=== PATIENT | female | born 1955 | race Caucasian/White ===

== ENCOUNTER 2022-04-09 09:06 | Observation (INO) | payer MEDICARE, SELFPAY ==
--- NOTE | 2022-04-02 17:03 | US_ITS ---
STUDY: ULTRASOUND OF THE FEMALE PELVIS - COMPLETE REASON FOR EXAM: Female, 67 years old. Pelvic pain LMP: Unknown. TECHNIQUE: Transvaginal TECHNICAL QUALITY: Adequate. COMPARISON: None. FINDINGS: The uterus is retroflexed and is in a midline position. The uterus measures 7.6 x 5 x 3.1 cm. Normal uterine cervix. The endometrium measures 2.2 mm in thickness, and is fluid distended. Small echogenic shadows are seen within the endometrial cavity could represent small polyps. There is no demonstrated myometrial mass. I.U.D. - The patient does not have an I.U.D. The right ovary is visualized. The right ovary measures 2.6 x 2 x 1.5 cm. There is no right ovarian cyst or ovarian mass. There is no visualized right adnexal mass or complex lesion. There is normal arterial and normal venous vascularity. The left ovary is visualized. The left ovary measures 2.5 x 1.5 x 1.1 cm. There is no left ovarian cyst or ovarian mass. There is no visualized left adnexal mass or complex lesion. There is normal arterial and normal venous vascularity. There is no fluid in the cul-de-sac. US/Transvaginal Non- IMPRESSION: 1. Nonspecific mild fluid within the endometrial cavity with small echogenic structures within it could represent polyps. 2. Retroflexed uterus. Electronically Signed: Luis Enrique Hermosillo MD at 8:45 EDT ,
--- NOTE | 2022-04-06 10:18 | EKG12_ITS ---
Test Reason : PRE-OP Blood Pressure : / mmHG Vent. Rate : 072 BPM Atrial Rate : 072 BPM P-R Int : 152 ms QRS Dur : 088 ms QT Int : 364 ms P-R-T Axes : 010 -06 011 degrees QTc Int : 398 ms Normal sinus rhythm Normal ECG Confirmed by ABRAHAM SMITH, MATTEO ([id number]), video editor RADHA DURAND ([id number]) on 04/07/2022 10:05:18 AM Referred By: Anisha Hall Confirmed By:MATTEO ROSARIO MD
[2022-04-06 11:40] LABS: Hematocrit 42.3 % (37-47); Hemoglobin 14.1 g/dL (12.0-15.0); Mean Corp Hgb Conc 33.3 g/dL (32-36); Mean Corpuscular Hgb 29.9 pg (27.0-32.0); Mean Corpuscular Volume 89.6 fL (81-99); Mean Platelet Vol. 9.8 fl (6.2-12.0); Platelet Count 261 K/mm3 (150-450); RBC Distribution Width CV 12.7 % (11.6-14.6); RBC Distribution Width SD 41.6 fl (35.1-43.9); Red Blood Count 4.72 M/mm3 (4.2-5.4); White Blood Count 7.6 K/mm3 (4.4-11.0)
--- NOTE | 2022-04-08 16:42 | PCM.HP.BLA ---
History and Physical Date of Admission: 04/08/22 MR#: [id number] Acct: [id number] Name:RADHAMES MG Rep #: [id number] : 1955 ? ? Provider: Dr. Anisha Hall, DO Age/Sex:? 67/F ? ? Location: [facility] [place] Status: Signed Intake Vital Signs ? 03/25/2214:35 Height 5 ft 7 in Weight: 175 lb BMI 27.3 BP 158/90 H Intake Visit Reasons:?Karolina payne TVH possible cysto It Disaster Recovery Manager Required: No Is patient in pain?: No Allergies No Known Allergies Allergy (Verified 03/05/22 10:04) Medications ascorbic acid (vitamin C) [Vitamin C] 500 mg PO DAILY 03/05/22 [History Confirmed 03/25/22] biotin 1 mg PO DAILY 03/05/22 [History Confirmed 03/25/22] krnlixi-cyfufraci-atdx 1 tab PO DAILY 03/05/22 [History Confirmed 03/25/22] cholecalciferol (vitamin D3) [Vitamin D3] 150 mcg PO BID 03/05/22 [History Confirmed 03/25/22] fiber 1 tab PO DAILY 03/05/22 [History Confirmed 03/25/22] flaxseed oil 1,000 mg PO DAILY 03/05/22 [History Confirmed 03/25/22] folic acid 0.8 mg PO DAILY 03/05/22 [History Confirmed 03/25/22] xkcxtusu-xzrwiqv-rvvh-lutein [Centrum Silver Ultra Women's] 1 tab PO DAILY 03/05/22 [History Confirmed 03/25/22] psyllium [Metamucil] 2 packet PO DAILY 03/05/22 [History Confirmed 03/25/22] vitamin E (dl, acetate) 400 unit PO DAILY 03/05/22 [History Confirmed 03/25/22] Is last menstrual period known: No Post menopausal: Yes Patient : No : No PFSH Medical History? Hepatitis High cholesterol History of steroid therapy Leg cramps Non-smoker Post-menopausal Uterine prolapse Wears glasses Wears hearing aid Surgical History? History of History of colonoscopy S/p bilateral carpal tunnel release S/P cataract extraction Family History? Mother HypertensionGrandmother Hypertension Breast cancer Myocardial infarction Alzheimer diseaseGrandfather Colon cancer Social History? Smoking Status:? Never smoker alcohol intake:? never substance use type:? does not use caffeine:? No what type of physical activity do you participate in:? other details: stretching seatbelt use:? always do you feel safe at home:? Yes additional social history:? -Merritt ? HPI [place] combo TVH possible cysto Details: Details: RADHAMES KELLY is a 66 year old who presents for consultation for pelvic prolapse. She was offered a pessary by a provider in [place], however she is? not interested. She has a h/o 1 section and 2 vaginal deliveries. She states that in the past she lifted weights and likes to stay physically active. She states that she can no longer be as active as she would like to be due to her vaginal prolapse that causes irritation and discomfort. She also notes that her bladder is weak and she will almost not make it to the bathroom in time. She has tried kegal exercises without success. she is very interested in vaginal surgery with hysterectomy to help with the symptoms. ultrasound is pending. Pregancy History ? ? ? 3 ? Elective abortions ? Hx Para ? ? ? 3 ? Spontaneous abortions ? Hx # Term Pregnancies ? Ectopic pregnancies ? Hx # Pregnancies ? Multiple births ? # of living children ? Past Pregnancies Del. Date Name GA/Weeks Outcome Route Bth Weight Infant Gen Labor Lgth Anesthesia Del Locatn Provider FOB Unknown Vitor ? Unknown Robinson ? Unknown Lindsey ? ROS Const ROS Unobtainable: All systems reviewed & are unremarkable except as noted in H Resp Resp: Reports system reviewed and no additional complaints, except as documented; Denies cough GI GI: Reports as per HPI Psych Psych: Reports system reviewed and no additional complaints, except as documented Exam Const General: cooperative, healthy appearing, comfortable and no acute distress Resp Effort & Inspection: normal respiratory effort Other: cystocele (grade 2 ) mild and rectocele (grade 1/2 ) mild Skin General: no rashes or lesions noted Psych Appearance: grossly normal Speech and Movement: speech and movement normal Coding Level of Care Code Off vis,est,level 4 Diagnoses Pelvic organ prolapse quantification stage 2 cystocele? N81.10 Assessment and Plan Assessment and Plan (1) Pelvic organ prolapse quantification stage 2 cystocele: ?Status:?Acute ? ? ? Orders:?Orders: ? Transvaginal w/Preg US Today ?Plan - Dr. Anisha Hall, DO: After discussing the patient's diagnosis and treatment plan options, patient wishes to proceed with surgical management.? I have discussed with the patient the risks, benefits, and alternatives of the procedure which include but are not limited to risks of anesthesia, bleeding, infection, possible damage to bowel, bladder, or surrounding vasculature which could lead to additional surgery to evaluate any complications.? Patient agrees to procedure and wishes to proceed.? ACOG/uptodate references given for additional information regarding procedure.? ultrasound to be performed this week. STUDY: ? ULTRASOUND OF THE FEMALE PELVIS - COMPLETE REASON FOR EXAM: ? Female, 67 years old.? Pelvic pain ? LMP:? Unknown. TECHNIQUE: ? Transvaginal TECHNICAL QUALITY: ? Adequate. COMPARISON: ? None. FINDINGS: The uterus is retroflexed and is in a midline position.? The uterus measures 7.6 x 5 x 3.1 cm.? Normal uterine cervix.? The endometrium measures 2.2 mm in thickness, and is fluid distended.? Small echogenic shadows are seen within the endometrial cavity could represent small polyps.? There is no demonstrated myometrial mass. ? I.U.D. - The patient does not have an I.U.D. The right ovary is visualized.? The right ovary measures 2.6 x 2 x 1.5 cm. There is no right ovarian cyst or ovarian mass.? There is no visualized right adnexal mass or complex lesion. There is normal arterial and normal venous vascularity. The left ovary is visualized.? The left ovary measures 2.5 x 1.5 x 1.1 cm. There is no left ovarian cyst or ovarian mass.? There is no visualized left adnexal mass or complex lesion.? There is normal arterial and normal venous vascularity. There is no fluid in the cul-de-sac. US/Transvaginal Non- IMPRESSION: 1.? Nonspecific mild fluid within the endometrial cavity with small echogenic structures within it could represent polyps. 2.? Retroflexed uterus. ? plan for total vaginal hysterectomy, possible Bso, possible cystoscopy. Dr. Turcios to per form her part of surgery to correct cystocele and help with incontinence. UPDATE- I have seen the patient and performed any clinically relevant updates to the history and physical exam. Anisha Hall, DO
[2022-04-09] VITALS (12 sets, daily range): BP systolic 90–159; BP diastolic 54–90; PULSE 59–79; RESP 14–18; TEMP 36.2–37; O2SAT 96–100; BMI 29.3
[2022-04-09] MEDS: dexAMETHasone 10 MG/ML Vial 8 MG IV (06:00)
[2022-04-09] MEDS: Acetaminophen 500 MG Tablet 1000 MG PO ×3 (06:00→17:52)
[2022-04-09] MEDS: Lactated Ringers 1,000 ML 40 ML IV ×2 (06:00→08:46)
[2022-04-09] MEDS: Gabapentin 600 MG Tablet PO (06:00)
[2022-04-09] MEDS: Celecoxib 200 MG Capsule 400 MG PO (06:00)
[2022-04-09 06:20] LABS: Bedside Glucose 69 mg/dL (74-106)
--- NOTE | 2022-04-09 07:27 | DCINST_ITS ---
Discharge Instructions Diet Discharge Diet: No restrictions Activity Discharge Activity: Return to Normal Activity, May Not Drive (while taking narcotic pain medications.) and May Shower May resume sexual activity in: 6-8 weeks Dressing / Incision Call your doctor if your incision/area has: Continuous Slow Oozing, Sudden Increased Bleeding, Increased Pain/ Swelling, Increased Redness and Foul Smelling Discharge Call your doctor if you observe: Fever of 101 or Higher, Inability to urinate, Inability to have a bowel movement and Using more than 1 pad per hour Follow Up Care Please Follow Up With: Anisha Hall DO Test Results: Test results from this visit will be discussed in further detail at your follow- up appointment, if applicable. Discharge Plan Admission Primary Reason for Your Visit: vaginal hysterectomy Attending Provider: Anisha Hall Primary Care Provider: Clyde Kwon Discharge Orders/Prescriptions Prescriptions: New oxycodone-acetaminophen [Percocet] 5-325 mg tablet 1 tab PO Q6H PRN (Reason: pain) 7 Days Qty: 30 0RF ibuprofen 600 mg tablet 600 mg PO Q6H PRN (Reason: mild to moderate pain) 7 Days Qty: 30 0RF Rx Instructions: one tab every 6 hrs as needed for mild to moderate pain Continued psyllium Packet 2 packet PO DAILY flaxseed oil 1,000 mg Capsule 1,000 mg PO DAILY hrgucxb-zklhnilmj-vzgj Tablet 1 tab PO DAILY ascorbic acid (vitamin C) [Vitamin C] 500 mg Tablet 500 mg PO DAILY fiber Tablet 1 tab PO DAILY folic acid 800 mcg Tablet 0.8 mg PO DAILY biotin 500 mcg Capsule 1 mg PO DAILY gihnzsoa-bxmxvjo-nqhh-lutein Tablet 1 tab PO DAILY vitamin E (dl, acetate) 400 unit Tablet,Chewable 400 unit PO DAILY cholecalciferol (vitamin D3) [Vitamin D3] 50 mcg (2,000 unit) Capsule 150 mcg PO BID Other Ambulatory Orders: 12 Lead EKG (Routine) Timeframe: [id number] Location: None Selected Ordered By: Dr. Stanley Colmenares Referrals / Follow Up: Clyde Kwon MD [Primary Care Provider] - Disposition Disposition (needs filled in before D/C Order can be placed): Home, Self Care
[2022-04-09] MEDS: Cefazolin 2 GM in 0.9% Normal Saline 100 ML IV (07:28)
--- NOTE | 2022-04-09 07:30 | HYST_PTH ---
PATIENT: LUPE KELLY LOC: [facility] U#:[id number] AGE/SX: 67/F ROOM: [facility]319 RE04/09/[address]: Dr. Anisha Hall DO : 1955 BED: 1 DIS: 04/10/2022 SPEC #: [id number] RECD: 04/09/22 13:11 STATUS: NIKI ALEIDA #: [id number] MERCEDES: 04/09/22 07:[address]: Anisha Hall DEPT: SURGICAL PATHOLOGY RECD BY: Beatriz Daigle ENTERED: 04/09/22 13:26 SP TYPE: HYSTERECT OTHR DR: Dr. Clyde Kwon MD Tissues: Uterus, NOS Procedures: Surgery Specimen Level V HEADER OPERATION: Vaginal hysterectomy, bilateral salpingo-oophorectomy PRE-OP DIAGNOSIS: Pelvic organ prolapse, cystocele TISSUE SUBMITTED: Cervix, uterus, bilateral fallopian tubes and bilateral ovaries MICROSCOPIC DIAGNOSIS Uterus, hysterectomy: Cervix ? squamous metaplasia, mild chronic inflammation and nabothian cysts. Endometrium ? focal simple cystic hyperplasia without atypia. Marshall endometrium with weakly proliferative to inactive change. Endometrial polyps ? simple cystic hyperplasia without atypia. 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 Ovaries with corpora albicantia and benign inclusion cysts. Right and left fallopian tubes ? benign paratubal cysts. AM:harika 04/12/2022 COMMENT Case has been reviewed in consultation with Dr. Woody who concurs with the above diagnosis. IDC:[email or web address] MICROSCOPIC DESCRIPTION Slides are reviewed. GROSS DESCRIPTION Received in fixative is one container labeled with the patient's name and designated cervix, uterus, bilateral fallopian tubes and bilateral ovaries. The specimen consists of a hysterectomy specimen consisting of uterus with cervix and detached bilateral fallopian tubes and ovaries. The uterus with cervix weighs 78 gm and measures 9.5 x 5 x 3.5 cm. The serosal surface is stack, glistening. The ectocervical mucosa is unremarkable. The external os is slit-like in contour and covered with hemorrhagic mucoid material. The endocervical canal measures 4 cm in length and the endocervical mucosa is stack, glistening and unremarkable. The triangular endometrial cavity measures 4.5 cm in length and up to 2.5 cm in width. The endometrial cavity shows three polyps measuring 0.5, 1 and 2 cm in greatest dimension. The endometrial wall underneath the polyp is not indurated. The rest of the endometrium measures 0.1 cm in thickness. Sections of the uterine wall reveal an ill-defined, congested mass measuring 1 cm in greatest dimension. The uterine wall measures up to 1.5 cm in thickness. The detached fallopian tube and ovary are not identified as right and left. One of the fallopian tubes measure 5.5 cm in length and 0.5 cm in diameter. The fimbrial end is identified. Sections reveal unremarkable cut surfaces. No tubo-ovarian adhesions are noted. Adjacent ovary measures 2.5 x 2 x 1 cm. Sections reveal a cyst filled with clear fluid measuring 0.5 cm in greatest dimension. The second fallopian tube is similar appearance to first and measures 5 cm in length and 0.6 cm in diameter. Adjacent ovary measures 2 x 1.5 x 1.2 cm. Sections reveal unremarkable cut surfaces. Beam Builder Helper sections are submitted in ten cassettes as follows: 1 - anterior cervix, 2 - posterior cervix, 3 & 4 - anterior uterine wall, 5 & 6 - posterior uterine wall, 7??endometrial polyps with underlying uterine wall, entirely submitted, 8 - ill-defined nodular mass, 9??one fallopian tube and adjacent ovary, 10 - second fallopian tube and adjacent ovary. / DEWEY:harika 04/09/2022 TC:1 CPT: 41297
[2022-04-09] MEDS: Bupivacaine Mpf 0.5% 30 ML VIAL (07:47)
--- NOTE | 2022-04-09 08:48 | OP.PCM_ITS ---
Problems Associated Problem List Diagnoses (1) Pelvic organ prolapse quantification stage 2 cystocele: Operative Report Date of Procedure: 04/09/22 Surgeon:hermilo Hall DO White Sugar Supervisor: ROWDY Richards Procedure: Total vaginal hysterectomy , bilateral salpingo-oophorectomy Preoperative diagnosis: Pelvic organ prolapse stage 2 Postoperative diagnosis: Pelvic organ prolapse stage 2 Estimated blood loss: 50cc Urine output: 200cc complications: none implanted material: none Procedure: The patient was prepped and draped in the usual sterile manner for an abdominal perineal procedure. A weighted speculum was placed in the posterior vaginal vault. A Humphreys catheter was placed of the urethra without difficulty. The cervix was grasped with a single-tooth tenaculum on both its anterior and posterior lips. With downward traction, a circumferential incision was made on the vaginal mucosa. This allowed dissection and entrance into the posterior cul-de-sac at this time we visualized the uterosacral ligaments. These were clamped and ligated with a #0 Vicryl suture. Cervical vesicle space was then created by both blunt and sharp dissection, allowing us to see the cardinal ligaments. These were clamped and ligated with a #0 Vicryl suture as well. Once in the cervical vesicle space, we were then able to completely ligate the uterosacral cardinal ligament complex with a #0 Vicryl suture. The anterior cul-de-sac was then entered sharply. Omentum and intestines were then visualized through the anterior cul-de-sac window and we began removal of the uterine body. Uterine arteries were then clamped and ligated with a #0 Vicryl suture and carried down towards the uterus until complete removal was obtained. #0 Vicryl suture was used on all major pedicles with Wojciech clamping. The tubes and ovaries were visualized on either side. The tubo ovarian complex was doubly ligated with a #0 Vicryl suture, cut and removed and passed off for pathology analysis. The entire vaginal vault was visualized We inspected for hemostasis and this was secured. Angled sutures were placed at 3 and 9:00 using #0 Vicryl suture in the usual manner. Once these angled sutures were placed in tension was applied we could see the peritoneum on either side. We closed the peritoneum with a #0 Vicryl in a running continuous manner. Hemostasis was excellent. We irrigated copiously. The sponge count was correct x2 at this time. We began closure of the vaginal mucosa. #0 Vicryl suture was used to close the vaginal mucosa in an interrupted manner, starting at the 9 and 3:00 positions and meeting in the midline. The Humphreys catheter was then removed. The next portion of the procedure will be dictated by Dr. Turcios Multi Select Codes Urinary/Genital Urinary/Genital CPT Codes: 21346 TVH+BS/O <250gr uterus
[2022-04-09] MEDS: Estrogens,Conj. 1 Tube 1 DOSE (10:05)
--- NOTE | 2022-04-09 11:13 | OP.PCM_ITS ---
Report of Operation Date of Procedure: 04/09/22 Pre-Operative Diagnosis: Incomplete uterovaginal prolapse, stress urinary incon tinence Post-Operative Diagnosis: Same Surgery/Procedure Performed:: Posterior repair with bilateral sacrospinous ligament fixation with dermis, mid urethral sling insertion, cystoscopy with bilateral ureteral catheterization. Surgeon: Lorena Turcios Type of Anesthesia: General Specimen's removed: None Estimated Blood Loss (mL): 35 Description of Procedure: The patient is a 67-year-old female with pelvic organ prolapse who presents for combination surgical intervention with hysterectomy and pelvic floor reconstruction. Informed consent was obtained. Anesthesia monitored the head, neck, airway, IV access and vital signs throughout the case. Once anesthesia was appropriately administered, the patient underwent hysterectomy with bilateral salpingo-oophorectomy and the case was turned over to md. At this time to the anterior support appeared to be well intact with rugae present and the decision was made to proceed with posterior repair with apical support via sacrospinous ligament fixation and dermis. The posterior vaginal wall was injected submucosally with Marcaine for hydrostatic dissection and hemostatic control. A midline incision was made in the posterior vaginal wall full- thickness. Sharp and blunt dissection was performed bilaterally until the rectovaginal fascia was identified. The ischial spines were identified superiorly and the sacrospinous ligaments were cleared from surrounding tissues. The Rotten Tomatoesio device was then used to pass an Ethibond suture through each sacrospinous ligament and then through a piece of trimmed dermis. The dermis was secured in the midline at the apex using a 2-0 Vicryl suture. The Ethibond was then brought through the dermis and through the lateral aspect of the apex of the vagina. The dermis was positioned and trimmed to fit her vagina and was secured to the rectovaginal fascia laterally and caudally using interrupted 2-0 Vicryl suture. Once this was completed and hemostasis was achieved, the midline incision was closed using running interlocking 2-0 Vicryl suture. Attention was then turned towards the mid urethra which was isolated and injected submucosally with Marcaine once again. A midline vertical incision was made approximately 2 cm in length. Sharp and blunt dissection was performed on either side of the urethra with care being taken to avoid entrance into the urethra or the vaginal wall. The trochars for the sling were then used to insert the tines into the obturator complexes bilaterally. The tensioning suture was then used to lay the sling flat without tension against the urethra. The mucosa was then closed with running interlocking 2-0 Vicryl. The Humphreys catheter was then removed and the patient was taken out of Trendelenburg. The cystoscope was inserted through the urethra using direct visualization into the urinary bladder. Bilateral ureteral orifices were located in the correct anatomic position. The bladder mucosa was visualized in its entirety with a 70 degree lens and found to be without evidence of injury, foreign body or other mucosal abnormality. Using a whistle- tip catheter, the left ureteral orifice was gently intubated with a whistle-tip catheter which was advanced easily without evidence of ureteral injury up to 20 cm. The same process was repeated on the patient's right side where a distal J hooking of the ureter was evident. A 0.035 Glidewire was then used to pass gently through the ureteral orifice without difficulty and straightened out the pathway of the ureter which was then easily intubated with a whistle-tip catheter up to 20 cm without evidence of injury or obstruction. At this time the wire, whistle-tip catheter and the cystoscope were all removed and the Humphreys catheter was replaced with 10 cc in the balloon. The vagina was packed with Premarin cream and vaginal packing. The patient was then awakened and taken to the recovery room in good condition. There were no complications during this procedure. Grafts/Implants Used: Dermis, mid urethral sling (altis) Complications None Admit VTE Documentation VTE Present on Admission: Yes VTE Mechan Device Prophylaxis: SCD's VTE Pharm Prophylaxis ordered?: Yes
[2022-04-09] MEDS: Docusate Sodium 100 MG Capsule PO ×2 (12:40→21:02)
[2022-04-09 13:33] LABS: Hematocrit 43.3 % (37-47); Hemoglobin 14.2 g/dL (12.0-15.0); Mean Corp Hgb Conc 32.8 g/dL (32-36); Mean Corpuscular Hgb 29.4 pg (27.0-32.0); Mean Corpuscular Volume 89.6 fL (81-99); Mean Platelet Vol. 9.6 fl (6.2-12.0); Platelet Count 237 K/mm3 (150-450); RBC Distribution Width CV 12.7 % (11.6-14.6); RBC Distribution Width SD 42.1 fl (35.1-43.9); Red Blood Count 4.83 M/mm3 (4.2-5.4); White Blood Count 13.2 K/mm3 (4.4-11.0)
[2022-04-09] MEDS: Cefazolin 1 GM/50 ML BAG IV (16:46)
[2022-04-09] MEDS: oxyCODONE 5 MG Tablet PO (21:00)
[2022-04-10] MEDS: Acetaminophen 500 MG Tablet 1000 MG PO ×3 (00:24→12:26)
[2022-04-10] MEDS: Cefazolin 1 GM/50 ML BAG IV (00:24)
[2022-04-10 00:34] VITALS: BP 134/71; PULSE 78; RESP 18; TEMP 36.9; O2SAT 96
[2022-04-10 03:58] VITALS: BP 128/61; PULSE 73; RESP 16; TEMP 37.3; O2SAT 93
[2022-04-10 06:29] LABS: Hematocrit 39.2 % (37-47); Hemoglobin 13.5 g/dL (12.0-15.0); Mean Corp Hgb Conc 34.4 g/dL (32-36); Mean Corpuscular Hgb 30.2 pg (27.0-32.0); Mean Corpuscular Volume 87.7 fL (81-99); Mean Platelet Vol. 9.8 fl (6.2-12.0); Platelet Count 234 K/mm3 (150-450); RBC Distribution Width SD 41.9 fl (35.1-43.9); Red Blood Count 4.47 M/mm3 (4.2-5.4); White Blood Count 14.6 K/mm3 (4.4-11.0)
[2022-04-10] MEDS: 0.9% Saline Lock 10 ML Syringe IV (06:51)
--- NOTE | 2022-04-10 08:48 | PCM.PN.GU ---
Subjective Subjective She is doing well this morning. Tolerating solid and liquid foods, not yet passing gas. Ambulatory last night. Pain is well controlled. No issues overnight. Objective Data Objective Data Vital Signs: Vital Signs Temp Pulse Resp BP Pulse Ox 99.2 F H 73 16 128/61 H 93 04/10/22 03:58 04/10/22 03:58 04/10/22 03:58 04/10/22 03:58 04/10/22 03:58 Oxygen Flow Rate (L/min) 4 Oxygen Delivery Method Room Air Weight: 80 kg Body Mass Index (BMI) 29.3 Intake & Output: Intake and Output for Last 24 Hours 04/08/22 04/09/22 04/10/22 23:59 23:59 23:59 Intake Total 4171.33 / 4471.33 551 / 551 Output Total 600 / 1200 1150 / 1150 Balance 3571.33 / 3271.33 -599 / -599 Lab / Micro Data Result Diagrams: 04/10/22 06:14 Labs: Laboratory Results - last 24 hr 04/09/22 13:11: WBC 13.2 H, RBC 4.83, Hgb 14.2, Hct 43.3, MCV 89.6, MCH 29.4, MCHC 32.8, RDW Std Deviation 42.1, RDW Coeff of Mariajose 12.7, Plt Count 237, MPV 9.6 04/10/22 06:14: WBC 14.6 H, RBC 4.47, Hgb 13.5, Hct 39.2, MCV 87.7, MCH 30.2, MCHC 34.4, RDW Std Deviation 41.9, RDW Coeff of Mariajose 13.0, Plt Count 234, MPV 9.8 Physical Exam Const alert, oriented x3 and no apparent distress General Appearance: cooperative, comfortable and well kempt Orientation / Consciousness: awake, oriented to person, oriented to place and oriented to time HEENT normocephalic and head/scalp atraumatic Eyes General Eye: normal appearance of both eyes Neck supple General: normal visual inspection and trachea midline Chest inspection of chest normal Resp normal respiratory effort, normal air movement, no retractions and no use of accessory muscles Effort and Inspection: able to speak in complete sentences and symmetric chest movement Cardio regular rate and regular rhythm GI soft to palpation, non-tender and non-distended external exam normal Narrative: Catheter and vaginal packing removed without incident Extremity normal to inspection and no calf tenderness Extremity Narrative: SCDs are in place Skin no rashes or lesions noted and no wounds Neuro oriented x3, CN's II-XII intact bilaterally and moves all extremities Assessment & Plan Assessment/Plan (1) Incomplete uterovaginal prolapse: (2) TIBURCIO (stress urinary incontinence, female): PLAN: Plan Trial of void today Home with or without catheter later this afternoon We discussed aggressive use of her incentive spirometer
--- NOTE | 2022-04-10 08:52 | DCINST_ITS ---
Discharge Instructions Diet Discharge Diet: No restrictions Activity Discharge Activity: May Shower May resume sexual activity in: 8 weeks Lifting Restrictions: No lifting over 5 pounds Additional Activity Instructions:: No swimming, tub bathing or hot tubs. Okay to shower. No sexual activity. Okay for steps. No strenuous activity or exercise. Dressing / Incision Call your doctor if your incision/area has: Continuous Slow Oozing, Sudden Increased Bleeding, Increased Pain/ Swelling, Increased Redness and Foul Smelling Discharge Call your doctor if you observe: Fever of 101 or Higher, Inability to urinate, Inability to have a bowel movement and Using more than 1 pad per hour Follow Up Care Please Follow Up With: Anisha Hall DO When: Dr. Turcios, call office for appt Test Results: Test results from this visit will be discussed in further detail at your follow- up appointment, if applicable. Discharge Plan Admission Admit Date/Time: 04/09/22 09:06 Primary Reason for Your Visit: vaginal hysterectomy Attending Provider: Anisha Hall Primary Care Provider: Clyde Kwon Discharge Orders/Prescriptions Prescriptions: New oxycodone-acetaminophen [Percocet] 5-325 mg tablet 1 tab PO Q6H PRN (Reason: pain) 7 Days Qty: 30 0RF ibuprofen 600 mg tablet 600 mg PO Q6H PRN (Reason: mild to moderate pain) 7 Days Qty: 30 0RF Rx Instructions: one tab every 6 hrs as needed for mild to moderate pain cephalexin [cephalexin] 500 mg capsule 500 mg PO Q12 3 Days Qty: 6 0RF Continued psyllium Packet 2 packet PO DAILY flaxseed oil 1,000 mg Capsule 1,000 mg PO DAILY [id number] Tablet 1 tab PO DAILY ascorbic acid (vitamin C) [Vitamin C] 500 mg Tablet 500 mg PO DAILY fiber Tablet 1 tab PO DAILY folic acid 800 mcg Tablet 0.8 mg PO DAILY biotin 500 mcg Capsule 1 mg PO DAILY [id number] Tablet 1 tab PO DAILY vitamin E (dl, acetate) 400 unit Tablet,Chewable 400 unit PO DAILY cholecalciferol (vitamin D3) [Vitamin D3] 50 mcg (2,000 unit) Capsule 150 mcg PO BID Other Ambulatory Orders: 12 Lead EKG (Routine) Timeframe: [id number] Location: None Selected Ordered By: Dr. Stanley Colmenares Referrals / Follow Up: Clyde Kwon MD [Primary Care Provider] - Disposition Disposition (needs filled in before D/C Order can be placed): Home, Self Care
[2022-04-10] MEDS: Docusate Sodium 100 MG Capsule PO (09:10)
[2022-04-10 09:38] VITALS: BP 141/65; PULSE 66; RESP 16; TEMP 36.6; O2SAT 96
--- NOTE | 2022-04-10 13:57 | CASEMGMT ---
RN DELON NOTE: Intro role of CM to patient and [facility] form explained re: Observation status for treatment of vaginal hysterectomy and cystoscopy. Explained hospitalization will be paid per her insurance policy for Outpatient billing and condition will continue to be evaluated for Inpt necessity. Also let pt know that [facility] sends paper in the billing packet with their phone number if questions arise. Discussed Pharmacy section of [facility] form and self administered medication guideline. Pt verbalizes understanding and does not have further questions. Form signed, copy made and placed in chart, and original given to pt. Sander ARRIAZA RN CM
[2022-04-10 18:11] VITALS: BP 131/53; PULSE 81; RESP 18; TEMP 37.2; O2SAT 100
== END 2022-04-10 18:50 | disposition home or self-care (01) ==
LOC: SDC 10:36 → MS3 10:36
PROVIDERS: Anesthesiology; Urology; Admitting Provider Obstetrics & Gynecology; PCP Family Medicine; Referring Provider Obstetrics & Gynecology; Visit Provider Obstetrics & Gynecology
PROC: (CPT 58260; principal; 2022-04-09 07:10)
PROC: (CPT 57260; 2022-04-09 07:10)
DX: N81.2 Incomplete uterovaginal prolapse (principal); N39.46 Mixed incontinence; N85.01 Benign endometrial hyperplasia; D25.9 Leiomyoma of uterus, unspecified; N83.291 Other ovarian cyst, right side; N83.292 Other ovarian cyst, left side; R35.1 Nocturia; N95.2 Postmenopausal atrophic vaginitis; Z86.19 Personal history of other infectious and parasitic diseases; Z79.899 Other long term (current) drug therapy; E78.00 Pure hypercholesterolemia, unspecified; Z78.0 Asymptomatic menopausal state; R10.2 Pelvic and perineal pain
CPT/HCPCS: 58263; 00944; 57288; 57250; 36415; 76830; 82962; 83735; 85027; 86850; 86900; 86901; 88307; 93005; 93976; 94762; 96365; 96366; 99218; 99251; J7050; J7120; A4216; C1758; G0378; G0463; J2405; J3475